=== PATIENT | male | born 1975 | race Caucasian/White ===

== ENCOUNTER 2024-02-06 10:40 | Emergency (ER) | payer OTHER, BC ==
[~2024-02-06] VITALS: Ht 165.1 cm; Wt 72.0 kg
[~2024-02-06 10:40] MED LIST: AUGMENTIN 875-1 EACH PO; CLINDAMYCIN HC300 MG PO; DIAZEPAM2 MG PO; MECLIZINE HCL25 MG PO; NORCO 5-325 TA1 EACH PO; ONDANSETRON HCL4 MG PO; PSEUDOEPHEDRINE60 MG PO
[2024-02-06] MEDS ORDERED: LIDOCAINE HCL 4% 1 EACH PATCH TD ONE (11:15)
[2024-02-06] MEDS ORDERED: HYDROmorphone HCL 1 MG/ML SYR IV ONE (11:15)
[2024-02-06] MEDS ORDERED: diazePAM 10 MG/2 ML SYR IV ONE (11:15)
[2024-02-06] MEDS ORDERED: ondansetron HCL 4 MG/2 ML VIAL IV ONE (11:15)
[2024-02-06] MEDS ORDERED: KETOROLAC TROMETHAMINE 30 MG/ML VIAL IV ONE (11:15)
[2024-02-06] MEDS ORDERED: LIDODERM1 EACH TOP (12:22)
[2024-02-06] MEDS ORDERED: PERCOCET 5-3251 EACH PO (12:22)
[2024-02-06] MEDS ORDERED: CYCLOBENZAPRINE10 MG PO (12:22)
[2024-02-06] MEDS ORDERED: KETOROLAC TROME10 MG PO (12:22)
[2024-02-06 12:36] VITALS: BP 141/109
[2024-02-06] MEDS ORDERED: LIDOCAINE PATCH REMOVAL 1 EA TD SCH (21:00)
== END 2024-02-06 12:36 | disposition home or self-care (01) ==
LOC: ED 10:40
DX: S39.92XA Unspecified injury of lower back, initial encounter (principal); X58.XXXA Exposure to other specified factors, initial encounter; F17.200 Nicotine dependence, unspecified, uncomplicated
CPT/HCPCS: 96374; 96375; 99283-25; A9270; J1170; J1885; J2405; J3360